=== PATIENT | female | born 1965 | race Two or more races ===

== ENCOUNTER → 2025-01-19 | Outpatient (CLI) | payer BC, SELFPAY ==
[2025-01-19 09:26] LABS: Collection Type, Urine Clean Catch
[2025-01-19 09:49] LABS: Basophils % (Auto) 1 % (0-2.5); Eosinophils # (Auto) 0.1 Thou/mm3 (0.0-0.5); Eosinophils % (Auto) 2 % (0-10); Hemoglobin 13.6 g/dL (12.0-16.0); Immature Granulocytes % (Auto) 0 % (0-0); Immature Granulocytes Auto 0.01 Thou/mm3 (0.00-0.00); Lymphocytes # (Auto) 2.5 Thou/mm3 (1.0-4.8); Lymphocytes % (Auto) 42 % (10-50); Mean Corpuscular Hemoglobin 28.4 pg (25.0-35.0); Mean Corpuscular Volume 84 fL (80-100); Monocytes # (Auto) 0.5 Thou/mm3 (0.0-0.8); Monocytes % (Auto) 8 % (0-12); Neutrophils # (Auto) 2.7 Thou/mm3 (1.8-7.7); Neutrophils % (Auto) 47 % (37-80); Nucleated Red Blood Cell % 0 /100 WBC (0); Platelet Count 250 Thou/mm3 (140-440); RDW Standard Deviation 40.3 fL (36.4-46.3); Red Blood Count 4.79 Miln/mm3 (4.00-5.20); White Blood Count 5.8 Thou/mm3 (3.6-11.0)
[2025-01-19 09:54] LABS: Bacteria,Urine Rare; Bilirubin,Urine Negative (Negative); Blood,Urine Trace (Negative); Clarity,Urine Clear (Clear/Hazy); Color,Urine Lt-Yellow (Lt Yel-Yel); Culture Indicated,Urine Not Indicated; Glucose, Urine Negative (Negative); Ketones,Urine Negative (Negative); Leukocyte Esterase,Urine Positive (Negative); Nitrite,Urine Negative (Negative); Protein,Urine Negative (Neg - Trace); RBC,Urine 3 /hpf (0-3); Squamous Epithelial Cell,Urine 2 /hpf (0-5); Urobilinogen,Urine Negative mg/dL (0.0-1.0); WBC,Urine 7 /hpf (0-5)
[2025-01-19 10:21] LABS: Glucose Estimated Average 111 mg/dL (80-131); Hemoglobin A1C 5.5 % Hgb (4.8-6.0)
[2025-01-19 10:45] LABS: Vitamin D 25 Hydroxy Total 18.4 ng/mL (7.3-40.2)
[2025-01-19 11:01] LABS: Alanine Aminotransferase 13 U/L (10-49); Albumin, Serum 4.3 gm/dL (3.4-4.8); Albumin/Globulin Ratio 1.7 (1.2-2.2); Alkaline Phosphatase 65 U/L (46-116); Anion Gap 10 (7-16); Aspartate Amino Transferase 15 U/L (0-34); BUN/Creatinine Ratio 25 Ratio (12-20); Bilirubin,Total 0.7 mg/dL (0.3-1.2); Blood Urea Nitrogen 20 mg/dL (9-23); Calcium 8.7 mg/dL (8.3-10.6); Calcium (Corrected) 8.7 mg/dL (8.5-10.1); Carbon Dioxide 26.7 mMol/L (20.0-31.0); Cardiac Risk Estimate 2.6 RATIO (3.7-5.6); Chloride 108 mMol/L (98-107); Cholesterol 177 mg/dL (132-200); Creatinine (Component) 0.8 mg/dL (0.6-1.3); Globulin 2.5 gm/dL (2.3-3.5); Glucose 111 mg/dL (74-106); HDL Cholesterol 67 mg/dL (40-60); LDL Cholesterol,Calculated 97 mg/dL (0-130); Osmolality,Calculated 292 (275-295); Potassium 4.4 mMol/L (3.4-5.1); Sodium 145 mMol/L (136-145); Total Protein 6.8 gm/dL (5.7-8.2); Triglycerides 63 mg/dL (30-150); eGFR > 60 See Note
== END | disposition home or self-care (01) ==
LOC: COPL 08:43
PROVIDERS: PCP Nurse Practitioner Family; Referring Provider Nurse Practitioner Family; Visit Provider Nurse Practitioner Family
DX: Z00.00 Encounter for general adult medical examination without abnormal findings (principal)
CPT/HCPCS: 36415; 80053; 80061; 81001; 82306; 83036; 84443; 85025

== ENCOUNTER 2025-04-18 00:28 | Emergency (ER) | payer BC, SELFPAY ==
[2025-04-18 00:30] VITALS: BP 127/77; PULSE 92; RESP 18; TEMP 37.6; O2SAT 98; BMI 38.7
--- NOTE | 2025-04-18 01:07 | XR_ITS ---
Examination: Duplex scan of the lower extremity, unilateral right complete Date and time of exam: April 18, 2025, 0121 hrs. Indications: Status post lithotripsy procedure last week followed by pain the last 3 days. Technique: Duplex scan of the extremity veins using B-mode/grayscale imaging and Doppler spectral analysis and color flow Attention is directed to internal echogenicity, compression and augmentation involving these veins, color flow assessment, spectral analysis Findings: Major deep venous structures in the extremity demonstrate normal course and caliber. There is no evidence of deep vein thrombosis. Normal color flow and spectral analysis Ablation of the greater saphenous vein Impression: Negative for DVT..
--- NOTE | 2025-04-18 01:08 | EDRME_ITS ---
Rapid Medical Screening Exam [facility] Arrival date/time: 04/18/25 00:28 This is a case of 60-year-old female with no medical history came in in the emergency room due to right leg pain history of present illness started last Saturday where she got a procedure on her right leg patient states that the doctor placed a glue on her vein on the right anterior thigh now patient noted that the area of the surgical incision was red swelling and tender to touch due to worsening of the pain thus patient decided to sought consult here in the emergency room Chief Complaint: Extremity Injury, Lower Vital signs: Vital Signs Temperature 99.7 F 04/18/25 00:30 Pulse Rate 92 04/18/25 00:30 Respiratory Rate 18 04/18/25 00:30 Blood Pressure 127/77 04/18/25 00:30 Pulse Oximetry (%) 98 04/18/25 00:30 Oxygen Delivery Method Room Air 04/18/25 00:30
[2025-04-18 01:25] LABS: Basophils # (Auto) 0.1 Thou/mm3 (0.0-0.2); Basophils % (Auto) 0 % (0-2.5); Eosinophils # (Auto) 0.0 Thou/mm3 (0.0-0.5); Eosinophils % (Auto) 0 % (0-10); Hematocrit 41.6 % (36.0-46.0); Hemoglobin 13.7 g/dL (12.0-16.0); Immature Granulocytes Auto 0.03 Thou/mm3 (0.00-0.00); Lymphocytes # (Auto) 1.8 Thou/mm3 (1.0-4.8); Lymphocytes % (Auto) 15 % (10-50); Mean Corpuscular HGB Conc 32.9 g/dl (31.0-37.0); Mean Corpuscular Hemoglobin 28.3 pg (25.0-35.0); Mean Corpuscular Volume 86 fL (80-100); Monocytes # (Auto) 0.9 Thou/mm3 (0.0-0.8); Monocytes % (Auto) 7 % (0-12); Neutrophils # (Auto) 9.2 Thou/mm3 (1.8-7.7); Neutrophils % (Auto) 77 % (37-80); Nucleated Red Blood Cell # 0.00 Thou/mm3 (0.00-0.00); Nucleated Red Blood Cell % 0 /100 WBC (0); Platelet Count 240 Thou/mm3 (140-440); RDW Standard Deviation 42.5 fL (36.4-46.3); Red Blood Count 4.84 Miln/mm3 (4.00-5.20); White Blood Count 12.0 Thou/mm3 (3.6-11.0)
[2025-04-18 01:43] LABS: Alanine Aminotransferase 11 U/L (10-49); Albumin, Serum 4.7 gm/dL (3.4-4.8); Albumin/Globulin Ratio 1.6 (1.2-2.2); Alkaline Phosphatase 70 U/L (46-116); Anion Gap 11 (7-16); Aspartate Amino Transferase 14 U/L (0-34); BUN/Creatinine Ratio 14 Ratio (12-20); Bilirubin,Total 1.7 mg/dL (0.3-1.2); Blood Urea Nitrogen 13 mg/dL (9-23); Calcium 10.1 mg/dL (8.3-10.6); Calcium (Corrected) 10.1 mg/dL (8.5-10.1); Carbon Dioxide 24.9 mMol/L (20.0-31.0); Chloride 106 mMol/L (98-107); Creatinine (Component) 0.9 mg/dL (0.6-1.3); Estimated Creatinine Clearance 65.5 mL/min (>60); Globulin 2.9 gm/dL (2.3-3.5); Glucose 121 mg/dL (74-106); Osmolality,Calculated 284 (275-295); Potassium 3.8 mMol/L (3.4-5.1); Sodium 142 mMol/L (136-145); Total Protein 7.6 gm/dL (5.7-8.2); eGFR > 60 See Note
[2025-04-18 03:59] VITALS: BP 118/73; PULSE 98; RESP 20; TEMP 37.3; O2SAT 97
--- NOTE | 2025-04-18 04:01 | PRELIM_ITS ---
Right lower extremity venous Doppler ultrasound with wave Doppler spectral analysis. April 18, 2025 at 0121 hours Clinical history: DVT. Technique: Duplex scan of the right lower extremity deep venous systems was performed utilizing 2D grayscale imaging, Doppler spectral analysis and color flow Doppler and with compression. Comparison: None. Findings: Lr scale, color flow and spectral Doppler evaluation of the right lower extremity deep veins were performed. The common femoral, superficial femoral and popliteal veins are patent and compressible. Normal respiratory variation is noted. There is no evidence of occlusive or nonocclusive thrombus. The great saphenous vein is noncompressible and filled with echogenic material, probably due to ablation. Impression: No sonographic evidence of deep venous thrombosis in the right lower extremity. The great saphenous vein is noncompressible and filled with echogenic material, probably due to ablation. Please, correlate clinically. Report Electronically Signed By: Vernon Kemp 04/18/2025 4:01:02 AM [EST]
--- NOTE | 2025-04-18 04:19 | EDNOTE_ITS ---
ED Extremity Problem RME/HPI General Chief complaint: Extremity Injury, Lower Stated complaint: R LEG PAIN SP VASCULAR PROCEDURE Arrival date/time: 04/18/25 00:28 RME / HPI RME / HPI Narrative: 04/18/25 00:28 This is a case of 60-year-old female with no medical history came in in the emergency room due to right leg pain history of present illness started last Saturday where she got a procedure on her right leg patient states that the d janor placed a glue on her vein on the right anterior thigh now patient noted that the area of the surgical incision was red swelling and tender to touch due to worsening of the pain thus patient decided to sought consult here in the emergency room DR. SANDERS MAIN ED EVALUATION: 60 y/o female presents to ED c/o RLE pain and redness with warmth at the thigh x 2 days s/p ablation of the saphenous vein 6 days ago. No other concerns or complaints expressed at this time. Related Data Home Medications ?Medication ?Instructions ?Recorded ?Confirmed Unobtainable 09/17/19 diclofenac sodium 50 mg 50 mg PO BID 09/17/19 tablet,delayed release tramadol PO 09/17/19 09/17/19 Previous Rx's ?Medication ?Instructions ?Recorded cephalexin 500 mg capsule 500 mg PO TID 7 days #21 cap s 04/18/25 Allergies Allergy/AdvReac Type Severity Reaction Status Date / Time No Known Allergies Allergy Verified 04/18/25 00:37 Review of Systems Review of Systems Systems Reviewed: All systems reviewed, normal except as documented ED Exam Narrative Physical exam: Generally patient is alert and in no obvious distress, heart regular rate and rhythm, lungs clear to auscultation equal bilaterally, abdomen is obese soft bowel sounds present nondistended nontender, extremities show a sutured wound to the inner aspect of the right distal thigh with a more proximal area of patchy erythema warmth and mild tenderness. Course Quality Measures none Orders Category Date Time Status US venous doppler LE RT Stat Exams 04/18/25 01:07 Taken CBC Stat Lab 04/18/25 01:10 Completed CMP [Comprehensive Metabolic Panel] Stat Lab 04/18/25 01:10 Completed Vital Signs Vital signs: Vital Signs Temperature 99.7 F 04/18/25 00:30 Pulse Rate 92 04/18/25 00:30 Respiratory Rate 18 04/18/25 00:30 Blood Pressure 127/77 04/18/25 00:30 Pulse Oximetry (%) 98 04/18/25 00:30 Oxygen Delivery Method Room Air 04/18/25 00:30 Extremity Problem MDM Narrative MDM Narrative:: Scribe Attestation: I, Makayla Singh, am scribing for and in the presence of Dr. Sanders. Provider Notation: Although this document has been carefully reviewed, there may still be some phonetic and other typographical errors. These errors are purely grammatical due to imperfections in the software program and should not be construed in any way to compromise the substance of the patient's medical care during this visit. Differential diagnosis, DVT, cellulitis, hematoma White count is 12,000. There is no fever. Doppler ultrasound to the right lower extremity showed no DVT. Patient has status post venous ablation therapy. I will treat the patient for a mild cellulitis. Patient data External records reviewed:: [facility] previous records (No recent ED records available for review.) Clinical information provided by:: patient Social determinants that could affect healthcare access:: none Patient has the following chronic illnesses:: None reported How is presenting disease/condition affected by chronic disease/condition?: no chronic disease Evaluation data The following diagnostics were reviewed and interpreted by me:: lab results and radiology exam(s) Lab and/or radiology exams considered but not ordered:: None Interpretation Summary: RADIOLOGY Venous Doppler Study: Findings: Lr scale, color flow and spectral Doppler evaluation of the right lower extremity deep veins were performed. The common femoral, superficial femoral and popliteal veins are patent and compressible. Normal respiratory variation is noted. There is no evidence of occlusive or nonocclusive thrombus. The great saphenous vein is noncompressible and filled with echogenic material, probably due to ablation. Impression: No sonographic evidence of deep venous thrombosis in the right lower extremity. The great saphenous vein is noncompressible and filled with echogenic material, probably due to ablation. Please, correlate clinically. Medications / Prescriptions Medications or Prescriptions considered but not ordered:: None Medication administrations:: See above if any. Consultations Consultation(s) initiated? (list below): No Diagnosis Extremity Problem Differential Diagnosis: cellulitis, superficial thrombophleb itis, lower extremity edema and deep vein thrombosis of lower extremity Most likely diagnosis given after review of the tests above:: none Admission Indicated Admission indicated?: not indicated Explain why admission is indicated or not indicated:: Patient does not meet admission criteria. Admission Request Was there a request for admission?: No Disposition Plan Disposition Plan: Discharge Discharge Attestation Discharge Attestation: The patient and all family members were given an opportunity to ask questions and understood the discharge instructions. Discharge instructions specifically effects, indications for sooner follow up or return to the emergency department, and the expected course of current diagnosis. Patient condition: Stable Discharge Plan Plan Patient Disposition: HOME (Self Care) Prescriptions/Referrals Prescriptions/Med Rec: New cephalexin 500 mg capsule 500 mg PO TID 7 Days Qty: 21 0RF No Action Unobtainable diclofenac sodium 50 mg tablet,delayed release (DR/EC) 50 mg PO BID tramadol PO Referrals: Sawyer Pompa MD [Primary Care Provider] - In 1 week Problem List Clinical Impression: Cellulitis Patient/Caregiver Discharge Instructions Education Materials: ED Cellulitis Additional Instructions: Take the antibiotic as prescribed. Follow-up with your doctor. Return to ER as needed or if condition worsens. Print Language: Taiwanese Stand Alone Forms: [facility] Award Info., Patient Portal Info Letter
== END 2025-04-18 04:39 | disposition home or self-care (01) ==
PROVIDERS: Nurse Practitioner Family; Emergency Provider Emergency Medicine; PCP Family Medicine
DX: L03.115 Cellulitis of right lower limb (principal); Z98.890 Other specified postprocedural states
CPT/HCPCS: 36415; 80053; 85025; 93971; 99283